=== PATIENT | male | born 1955 | race Caucasian/White ===

== ENCOUNTER → 2017-01-01 | Day surgery (SDC) | payer OTHER ==
[~2017-01-01] MED LIST: ALFU1TAB10 PO; BUPIVACAINE HCL PF 0.75% 30 ML VIAL ONE; CIAL5TAB PO; HYDR-3580 PO; LACTATED RINGER'S 1000 ML INJ 1,000 ML ONE; LIDOCAINE 1.5%/EPINEPHrine 1:200,000 PF SOLN 30 ML AMP ONE; MEPERIDINE HCL 25 MG/ML VIAL ONE; MIDAZOLAM HCL 5 MG/ML VIAL (1 ML) ONE; MOTR200T PO; NAPR220T95 PO; ONDANSETRON HCL 4 MG/2 ML VIAL ONE; PREV30CA36 PO; PROPOFOL 200 MG/20 ML AMP IV ONE; ceFAZolin INJ 1,000 MG VIAL ONE
--- NOTE | 2017-01-01 17:10 | MP ---
cc: GUILLERMINA ZAPATA MD DATE OF SURGERY 01/01/17 PREOPERATIVE DIAGNOSIS Left elbow distal biceps tendon tear. POSTOPERATIVE DIAGNOSIS Left elbow distal biceps tendon tear. SURGEON Jihan Zapata MD BOTTLE TESTER VINAY Ramirez The surgical procedure was assisted by my Advanced Registered Nurse Practitioner. My GLASS TECHNICIAN/INSTALLER presence was necessary throughout this case for the manipulation and positioning of the surgical extremity. My GLASS TECHNICIAN/INSTALLER was assisting me throughout the duration of this procedure. The skill set of an Advance Registered Nurse Practitioner was medically necessary to complete this procedure. During the surgical case, the surgical product sales consultant was working at the back table and the Advance Registered Nurse Practitioner was directly assisting me. PROCEDURE Left elbow repair of distal biceps tendon rupture. ESTIMATED BLOOD LOSS 40 mL. ANESTHESIA Regional and general TOURNIQUET TIME Zero minutes PROCEDURE IN DETAIL The patient had regional anesthesia performed. He was then brought back to the operative theater. General anesthesia was performed. He received intravenous Ancef. Left upper extremity was prepped and draped in usual sterile fashion. We had a non-sterile tourniquet applied, but we did not use it during the case. After prepping and draping, we made a standard transverse incision in the antecubital fossa. We dissected down protecting the lateral antebrachial cutaneous nerve. We immediately identified ruptured biceps tendon. We found that this was a complete tear and it was balled up and retracted in the middle of the fossa region. We were then able to bluntly track this down to the greater tuberosity of the radius. We did suture ligate recurrent radial artery as we dissected down. This gave us excellent exposure. We turned our attention back to the tendon. We used an Arthrex fiber loop to place a whip stitch in the tendon. We then sized the tendon to between an 7 and an 8. We placed a biceps button onto the sutures. We went back and got exposure about the radial tuberosity with the hand in full supination. We did clear off any overlying soft tissue on the tuberosity. We then used the drill in a bicortical fashion through the tuberosity and then reamed a size eight. We irrigated. We then placed the tendon using the biceps button through the back cortex. This allowed us to flip the button and then walk the tendon into the hole that we had created which was unicortical. This gave excellent tension. We used an arthroscopic knot tyer to tie the suture down. We then further augmented this repair using an Arthrex 7 x 10 biotenodesis screw which is a biocomposite and we placed on of the sutures through the screw which allowed us not only to get purchase with the tenodesis screw into the tendon but then also by tying the suture on top of this as well. The patient had full extension of the elbow. There was excellent tension on the biceps tendon. The wound was irrigated and then skin was closed with 2-0 Vicryl followed by 3-0 nylon. The patient was placed into a posterior splint after dressings were applied. Postoperative plan is a standard biceps distal repair protocol. MD MIKE Blum/ /2:15 PM /4:55 PM
== END | disposition home or self-care (01) ==
LOC: ESDC 11:25
PROVIDERS: ATTEND Orthopaedic Surgery
DX: S53.492A Other sprain of left elbow, initial encounter (principal)
CPT/HCPCS: 01710; 01991; 24341; 64415; C1713; J0690; J2175; J2250; J2405; J7120

== ENCOUNTER → 2017-02-25 | Outpatient (CLI) | payer OTHER ==
[~2017-02-25] MED LIST changes: -BUPIVACAINE HCL PF 0.75% 30 ML VIAL ONE; -LACTATED RINGER'S 1000 ML INJ 1,000 ML ONE; -LIDOCAINE 1.5%/EPINEPHrine 1:200,000 PF SOLN 30 ML AMP ONE; -MEPERIDINE HCL 25 MG/ML VIAL ONE; -MIDAZOLAM HCL 5 MG/ML VIAL (1 ML) ONE; +MULTTAB67 PO; -ONDANSETRON HCL 4 MG/2 ML VIAL ONE; +PREV15CA20 PO; -PROPOFOL 200 MG/20 ML AMP IV ONE; +TRAM50TA PO; -ceFAZolin INJ 1,000 MG VIAL ONE
[2017-02-25 11:30] LABS: BASOPHIL % 0.5 % (0.0-2.0); EOSINOPHIL % 0.7 % (0.0-4.0); HEMATOCRIT 49.2 % (39.0-51.0); HEMO FLAGS DIFF FINAL; LYMPHOCYTE # 1.3 TH/MM3 (1.0-4.8); MEAN CELL VOLUME 93.1 FL (80.0-100.0); MEAN CORPUSCULAR HEMOGLOBIN 30.9 PG (27.0-34.0); MEAN CORPUSCULAR HGB CONC 33.2 % (32.0-36.0); MONO % 7.4 % (0.0-8.0); NEUT % 63.4 % (16.0-70.0); PLATELET COUNT 259 TH/MM3 (150-450); RED BLOOD COUNT 5.29 MIL/MM3 (4.50-5.90); RED CELL DISTRIBUTION WIDTH 12.7 % (11.6-17.2); WHITE BLOOD COUNT 4.6 TH/MM3 (4.0-11.0)
== END ==
LOC: PHPRE 10:45
PROVIDERS: ATTEND Pain Medicine Interventional Pain Medicine
DX: Z01.810 Encounter for preprocedural cardiovascular examination (principal); Z45.49 Encounter for adjustment and management of other implanted nervous system device
CPT/HCPCS: 36415; 84132; 85025

== ENCOUNTER → 2017-03-14 | Day surgery (SDC) | payer OTHER ==
[~2017-03-14] VITALS: Ht 152.4 cm; Wt 88.6 kg
[~2017-03-14] MED LIST changes: -ALFU1TAB10 PO; +BUPIVACAINE/EPINEPHRINE 0.5% PF 30 ML VIAL ONE; +FAMOTIDINE 20 MG/2 ML VIAL ONE; -HYDR-3580 PO; +LACTATED RINGER'S 1000 ML INJ 1,000 ML ONE; +LIDOCAINE 1%/EPINEPHrine 1:100,000 SOLN 20 ML VIAL ONE; -MOTR200T PO; -NAPR220T95 PO; -PREV30CA36 PO; +PROPOFOL 200 MG/20 ML AMP ONE; +SODIUM CHLORIDE 0.9% 20 ML VIAL ONE; +SODIUM CHLORIDE 0.9% INJ 100 ML ONE; +ceFAZolin INJ 1,000 MG VIAL ONE
[2017-03-14 14:15] VITALS: BP 132/96; PULSE 64; RESP 16; TEMP 98.1; O2SAT 100
--- NOTE | 2017-03-14 15:56 | RADRPT ---
EXAM DATE/TIME: 03/14/2017 13:52 [facility] COMPARISON: No previous studies available for comparison. INDICATIONS : Removal of epidural spinal stimulator and placement of trial spinal stimulator. Hemostats on left shantell e at level of T9 - T10. MEDICAL HISTORY : None. SURGICAL HISTORY : None. ENCOUNTER: Initial ACUITY: 1 day PAIN SCORE: Non-responsive. LOCATION: Bilateral T-spine FINDINGS: Targeted intraoperative view of the lower dorsal spine. Patient appears to be prone hemostats are rep ortedly at the T9-10 disc interspace. If this is true, spinal stimulator is identified with the tip a t the T8-9 interspace. CONCLUSION: Spinal stimulator as above. Jose Platt MD on March 14, 2017 at 15:53 Board Certified Radiologist. This report was verified electronically.
--- NOTE | 2017-03-14 16:00 | MP ---
cc: HANNA JACKSON M.D. DATE OF : 1955 DATE OF SURGERY: 03/14/2017 PREOPERATIVE DIAGNOSIS: Failed back syndrome with intractable pain. POSTOPERATIVE DIAGNOSIS: Failed back syndrome with intractable pain. OPERATION: 1. Removal of spinal cord stimulating electrodes. 2. Removal of peripheral nerve stimulating electrodes. 3. Implantation of spinal cord stimulating electrodes. 4. Implantation of peripheral nerve stimulating electrodes. PROCEDURE: IV was started holding area the patient was given IV antibiotics. The surgical consent was signed. The surgical site was marked. The patient was taken to the operating room, placed in the prone position. All pressure points were checked and padded. He was sedated and monitored by Anesthesia. His back was prepped with Chloraprep and draped with sterile drapes. Fluoroscopy was used to visualize the two spinal cord stimulating leads and the two peripheral nerve stimulating leads. The skin was infiltrated with 1% lidocaine containing epinephrine and a 3-inch incision was made over the existing leads, blunt and sharp dissection took place to free the existing leads from the underlying tissue and their anchoring devices. The leads were removed intact. Then in a similar fashion the anchoring devices were cut and freed from the underlying tissue on the peripheral leads and they were removed intact. Then modified Tuohy needle from the [employer] kit was advanced into the epidural space at the T12-L1 interspace, one needle was placed slightly to the left of the midline. Another needle was placed slightly to the right of the midline and then two Medtronics quad electrodes were advanced in the cephalad direction parallel to each other until the cephalad tips of the electrodes were at the midportion of T9. At this point to the patient was awakened, stimulation took place with the electrodes on both right and the left. The patient was feeling of the stimulation in the areas of his pain which included his right and left groin and right left thigh and right and left hip. Then the patient was resuscitated the stylets were removed from the use of the leads the needles were removed and an anchoring devices were placed over all four leads and they were anchored to the underlying tissue. Then, the distal extension wires were connected to call for the stimulating electrodes and impedance was checked in the bedside found to be appropriate in all electrodes then distal extension wires were connected to the stimulating electrodes and a tunneling device was used to tunnel the distal extension wires to exit on the patient's left flank. The connection between the stimulating leads and the distal extension wires was covered with Silastic cover secured at both ends with 2-0 Ethilon suture. The incision was irrigated with Betadine and closure took place with 3-0 Monocryl and the subcuticular tissue and 3-0 nylon on the skin. The incision was covered with sterile adhesive dressings and the patient was taken to the recovery room with stable vital signs neurologically intact. W. MD SANGEETHA Paige/hiwot /1:22 PM /3:10 PM
== END | disposition home or self-care (01) ==
LOC: PHSDC 09:32
PROVIDERS: ATTEND Pain Medicine Interventional Pain Medicine
DX: M96.1 Postlaminectomy syndrome, not elsewhere classified (principal); Z98.1 Arthrodesis status
CPT/HCPCS: 00300; 63650; 72020; 77003; C1778; C1883; J0690; J7120

== ENCOUNTER → 2017-03-20 | Day surgery (SDC) | payer OTHER ==
[~2017-03-20] VITALS: Ht 180.3 cm; Wt 88.5 kg
[~2017-03-20] MED LIST changes: +*MEPERIDINE 25 MG INJ VIAL PERIprocedural Use ONLY ONE; +BUPIVACAINE HCL PF 0.25% 30 ML VIAL ONE; +BUPIVACAINE/EPINEPHRINE 0.25% PF 30 ML VIAL ONE; +CHLORHEXIDINE GLUCONATE 2 % 1 PACK (2 CLOTHS) TOPICAL PRN; -FAMOTIDINE 20 MG/2 ML VIAL ONE; -LACTATED RINGER'S 1000 ML INJ 1,000 ML ONE; +LACTATED RINGER'S 1000 ML IV PRN; -LIDOCAINE 1%/EPINEPHrine 1:100,000 SOLN 20 ML VIAL ONE; +METOPROLOL TARTRATE 25 MG TAB PO PRN; +POVIDONE IODINE 5% (ANTISEPSIS KIT) 4 APPLICATIONS EACH NARE PRN; -PROPOFOL 200 MG/20 ML AMP ONE; +SODIUM CHLORID 0.9% 500 ML IV PRN; -SODIUM CHLORIDE 0.9% 20 ML VIAL ONE; -SODIUM CHLORIDE 0.9% INJ 100 ML ONE; +VANCOMYCIN HCL 500 MG ON-CALL/NS 100 ML IV SCH; +ceFAZolin 1,000 MG/NS 100 ML IV SCH; -ceFAZolin INJ 1,000 MG VIAL ONE
[2017-03-20 13:37] VITALS: PULSE 62
[2017-03-20 14:15] VITALS: TEMP 97.5
[2017-03-20 14:30] VITALS: PULSE 62
[2017-03-20 14:55] VITALS: BP 134/88; PULSE 67; RESP 14; O2SAT 97
--- NOTE | 2017-03-21 06:47 | MP ---
cc: HANNA JACKSON M.D. DATE OF SURGERY 03/20/2017 DATE OF 1955. PROCEDURE Implantation of Medtronics spinal cord stimulating pulse generator rechargeable device. PREPROCEDURE DIAGNOSIS Failed back syndrome with intractable pain. POSTPROCEDURE DIAGNOSIS Failed back syndrome with intractable pain. PROCEDURE NOTE IV was started in the holding area. The patient was given IV antibiotics. He signed his consent form. The surgical site was marked. The patient was taken to the operating room, given general LMA anesthesia, placed in the right lateral decubitus position. The hair on his left abdomen was shaved, then his abdomen and lumbar area were prepped with ChloraPrep. The distal extension wires in his left flank were cut with sterile scissors. Then a 25-gauge needle was used to infiltrate 0.25% Marcaine with epinephrine over the previous lumbar incision and then in the left subcostal area. The lumbar incision was opened. The distal extension wires were disconnected from the stimulating electrodes by loosening the Garett screws. Then an incision was made in the left subcostal area and the existing pulse generator was exteriorized after cutting the distal extension wires. Then a tunneling device was used to tunnel distal extension wires from the lumbar incision to the left abdominal pocket. The distal extension wires then were connected to the stimulating electrodes by tightening Garett screws and covering the connection with Silastic cover secured at both ends with 2-0 Ethibond suture. Then the distal end of the extension wires were connected to the dual channel rechargeable pulse generator by tightening Garett screws. Impedance was checked at the bedside and found to be appropriate in all the electrodes. The incisions were irrigated with Betadine. The redundant wire was pulled behind the pulse generator. The pulse generator was placed in the subcutaneous pocket with the letter side facing the skin. The incision in the lumbar area and the left subcostal area were closed with 3-0 Monocryl in the subcuticular tissue and 3-0 nylon on the skin. The incisions were covered with sterile adhesive dressings and the patient was taken to the recovery room with stable vital signs, neurologically intact. W. MD SANGEETHA Paige/ELLI /1:27 PM /6:35 AM
== END | disposition home or self-care (01) ==
LOC: PHSDC 09:33
PROVIDERS: ATTEND Pain Medicine Interventional Pain Medicine
DX: M96.1 Postlaminectomy syndrome, not elsewhere classified (principal); Z98.1 Arthrodesis status
CPT/HCPCS: 00300; 63685; 64595; C1767; C1883; J0690; J2175; J3370; J7120